=== PATIENT | female | born 1955 | race American Indian/Alaskan Native ===

== ENCOUNTER 2018-12-29 11:20 | Outpatient (CLI) | payer MEDICAID ==
--- NOTE | 2018-12-29 15:31 | Mammography Report ---
BILATERAL DIGITAL SCREENING MAMMOGRAM WITH CAD INDICATION: Routine screening mammography. TECHNIQUE: Digital bilateral 2D mammography was obtained in the craniocaudal and mediolateral obliq ue projections. This examination was interpreted with the benefit of Computer-Aided Detection analysi s. COMPARISON: None. FINDINGS: Breast Density: The breasts are almost entirely fatty. No mass, architectural distortion or suspicious calcifications. IMPRESSION:No mammographic evidence of malignancy. BI-RADS Category 1: Negative. No mammographic evidence of malignancy. Recommend routine screening m ammography in one year. A "normal" or negative report should not discourage follow up or biopsy of a clinically significant f inding. A written summary of these findings will be mailed to the patient. The patient will be entered into a mammography reporting system which will generate a reminder letter for the patient's next appointmen t at the appropriate interval. The [employer] recommends yearly mammograms starting at age 40 and continuing as l ton as a woman is in good health. Breast MRI is recommended for women with an approximate 20-25% or greater lifetime risk of breast cancer, including women with a strong family history of breast or ova sathya cancer or who have been treated for Hodgkin's disease. Signer Name: Wayne Golden MD Signed: 12/29/2018 3:26 PM Workstation Name: [id number]
--- NOTE | 2018-12-29 16:40 | Mammography Report ---
DEXA BONE DENSITY SCAN INDICATION: Postmenopausal COMPARISON: None available. LUMBAR SPINE (L1-L4): Bone mineral density (BMD) is 0.950 g/cm2. T-score is -0.9 (standard deviations of Young Adult mean). Z-score is +0.1 (standard deviations of Age Matched mean). RIGHT HIP: Bone mineral density (BMD) is 1.074 g/cm2. T-score is 1.1 (standard deviations of Young Adult mean). Z-score is 1.2 (standard deviations of Age Matched mean). IMPRESSION: 1. WHO Classification: Normal bone density. Fracture Risk: Not Increased. Signer Name: Wayne Golden MD Signed: 12/29/2018 4:36 PM Workstation Name: [id number]
== END 2018-12-29 11:21 | disposition home or self-care (01) ==
LOC: MAMMO 11:20
PROVIDERS: ATTEND Advanced Practice Midwife
DX: Z12.31 Encounter for screening mammogram for malignant neoplasm of breast (principal); Z78.0 Asymptomatic menopausal state
CPT/HCPCS: 77067; 77080

== ENCOUNTER 2020-07-05 14:13 | Outpatient (CLI) | payer MEDICARE ==
--- NOTE | 2020-07-05 15:58 | Mammography Report ---
DIGITAL SCREENING MAMMOGRAM WITH CAD, 07/05/2020 CLINICAL INFORMATION / INDICATION: Routine screening mammography. TECHNIQUE: Digital bilateral 2D mammography was obtained in the craniocaudal and mediolateral obliqu e projections. This examination was interpreted with the benefit of Computer-Aided Detection analysis . COMPARISON: 12/29/2018 FINDINGS: Breast Density: The breasts are almost entirely fatty. No dominant mass, suspicious calcifications, or architectural distortion in either breast. IMPRESSION: No mammographic evidence of malignancy. Follow up recommendation: Routine yearly BI-RADS Category 1: Negative. A "normal" or negative report should not discourage follow up or biopsy of a clinically significant f inding. A written summary of these findings will be mailed to the patient. The patient will be entered into a mammography reporting system which will generate a reminder letter for the patient's next appointmen t at the appropriate interval. The [employer] recommends yearly mammograms starting at age 40 and continuing as l ton as a woman is in good health. Breast MRI is recommended for women with an approximate 20-25% or greater lifetime risk of breast cancer, including women with a strong family history of breast or ova sathya cancer or who have been treated for Hodgkin's disease. Signer Name: Theresa Rausch MD Signed: 07/05/2020 3:53 PM Workstation Name: [email or web address]
== END 2020-07-05 14:14 | disposition home or self-care (01) ==
LOC: MAMMO 14:13
PROVIDERS: ATTEND Advanced Practice Midwife
DX: Z12.31 Encounter for screening mammogram for malignant neoplasm of breast (principal)
CPT/HCPCS: 77067